=== PATIENT | male | born 1970 | race Caucasian/White ===

== ENCOUNTER 2019-08-26 14:55 | Emergency (ER) | payer MEDICARE ==
[2019-08-26 15:38] LABS: BASO # 0.1 10^3/uL (0.0-0.2); BASO % 0.8 % (0.0-1.0); EOS # 0.1 10^3/uL (0.0-0.5); EOS % 0.8 % (0.0-3.0); HEMOGLOBIN 14.8 g/dl (13.5-17.5); LYMPH % 17.2 % (24.0-44.0); MEAN CORPUSCULAR HEMOGLOBIN 31.4 pg (27.0-33.0); MEAN CORPUSCULAR HGB CONC 34.4 g/dl (32.0-36.5); MEAN CORPUSCULAR VOLUME 91.1 fl (80.0-96.0); MONO # 0.5 10^3/uL (0.0-0.8); MONO % 7.8 % (0.0-5.0); NEUTROPHILS # 4.3 10^3/uL (1.5-8.5); NEUTROPHILS % 72.7 % (36.0-66.0); PLATELET COUNT, AUTOMATED 229 10^3/uL (150-450); RED BLOOD COUNT 4.72 10^6/uL (4.30-6.10); WHITE BLOOD COUNT 5.9 10^3/uL (4.0-10.0)
--- NOTE | 2019-08-26 16:10 | REP ---
CHEST, SINGLE VIEW: Single view of the chest is performed. There is no acute infiltrate. There is poor ventilation. The cardiomediastinal silhouette appears magnified. Left pacemaker is again noted. IMPRESSION: No acute pulmonary disease. Electronically Signed by Evert Brar MD 08/26/2019 05:07 P
--- NOTE | 2019-08-26 17:05 | REP ---
CT BRAIN WITHOUT CONTRAST: CT brain performed without IV contrast. Coronal reconstruction images are performed. Ventricles are normal in size and position. There is no midline shift or mass effect. Brar-white differentiation is well maintained. There is no acute intracranial hemorrhage or extra-axial fluid collection. There is mild mucosal thickening in the inferior maxillary sinuses. IMPRESSION: Mild mucosal thickening inferior maxillary sinuses. Otherwise, negative noncontrast CT brain. Electronically Signed by Evert Brar MD 08/26/2019 05:08 P
--- NOTE | 2019-08-26 21:11 | ECGEPIP ---
[facility] - ED Test Date: 2019-08-26 Pat Name: NATALYA YOUNG Department: Room: - Gender: Male Recovery Analyst: brittany : 1970 Requested By: RENA Nuñez Order Number: [id number] Reading MD: Paolo Adler Measurements Intervals [place] Rate: 81 P: 55 OK: 171 QRS: 10 QRSD: 88 T: 67 QT: 351 QTc: 408 Interpretive Statements SINUS RHYTHM ANTERIOR MYOCARDIAL INFARCTION, OF INDETERMINATE AGE NO PRIORS FOR COMPARISON Electronically Signed on 08-26-2019 21:11:40 EDT by Paolo Adler
--- NOTE | 2019-08-26 21:15 | ECGEPIP ---
[facility] - ED Test Date: 2019-08-26 Pat Name: NATALYA YOUNG Department: Room: - Gender: Male Base Brander: [email or web address] : 1970 Requested By: RENA FOX Order Number: [id number] Reading MD: Paolo Adler Measurements Intervals [place] Rate: 60 P: 57 OR: 151 QRS: 1 QRSD: 84 T: 77 QT: 382 QTc: 382 Interpretive Statements ELECTRONIC ATRIAL PACEMAKER NSTTW ABNORMALITIES RHYTHM CHANGE COMPARED TO PRIOR ON SAME DATE Electronically Signed on 08-26-2019 21:15:21 EDT by Paolo Adler
[2019-08-26 21:31] VITALS: BP 110/65
--- NOTE | 2019-08-27 22:13 | ECGEPIP ---
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 No significant change compared with 08/26/2019 at 1807 hrs. Electronically Signed on 08-27-2019 22:13:36 EDT by Yonatan Hooper
== END 2019-08-26 21:35 | disposition home or self-care (01) ==
LOC: M ED 14:55
DX: F43.0 Acute stress reaction (principal); I25.2 Old myocardial infarction; Z95.0 Presence of cardiac pacemaker; Z95.5 Presence of coronary angioplasty implant and graft

== ENCOUNTER 2023-02-12 01:58 | Emergency (ER) | payer MEDICARE ==
[~2023-02-12] VITALS: Ht 165.1 cm; Wt 68.2 kg
[2023-02-12 02:25] LABS: BASO # 0.1 10^3/uL (0.0-0.2); BASO % 0.7 % (0.0-1.0); EOS # 0.1 10^3/uL (0.0-0.5); EOS % 1.7 % (0.0-3.0); HEMOGLOBIN 15.4 g/dl (13.5-17.5); LYMPH # 1.6 10^3/uL (1.5-5.0); LYMPH % 21.7 % (24.0-44.0); MEAN CORPUSCULAR HEMOGLOBIN 32.1 pg (27.0-33.0); MEAN CORPUSCULAR HGB CONC 34.2 g/dl (32.0-36.5); MEAN CORPUSCULAR VOLUME 93.8 fl (80.0-96.0); MONO # 0.5 10^3/uL (0.0-0.8); MONO % 7.1 % (2.0-8.0); NEUTROPHILS # 5.1 10^3/uL (1.5-8.5); NEUTROPHILS % 67.6 % (36.0-66.0); PLATELET COUNT, AUTOMATED 269 10^3/uL (150-450); WHITE BLOOD COUNT 7.5 10^3/uL (4.0-10.0)
[2023-02-12 02:43] LABS: LIPASE 38 U/L (12-53)
[2023-02-12 02:45] LABS: ALBUMIN 3.2 G/DL (3.2-5.2); ALKALINE PHOSPHATASE 109 U/L (46-116); ALT/SGPT 48 U/L (7.0-40); AST/SGOT 53 U/L (<34); BILIRUBIN,DIRECT < 0.1 MG/DL (<0.4); BILIRUBIN,TOTAL 0.4 MG/DL (0.3-1.2); BLOOD UREA NITROGEN 14 MG/DL (9-23); CALCIUM LEVEL 8.9 MG/DL (8.5-10.1); CARBON DIOXIDE LEVEL 27 MMOL/L (20-31); CHLORIDE LEVEL 103 MMOL/L (98-107); CK-MB VALUE MASS < 1.0 NG/ML (<3.6); CREATININE FOR GFR 1.14 MG/DL (0.70-1.30); GLOMERULAR FILTRATION RATE > 60.0 (>56); GLUCOSE, FASTING 121 MG/DL (60-100); POTASSIUM SERUM 4.5 MMOL/L (3.5-5.1); SODIUM LEVEL 139 MMOL/L (136-145); TOTAL PROTEIN 6.4 G/DL (5.7-8.2)
[2023-02-12 02:49] LABS: CPK CREATINE PHOSPHOKINASE 85 U/L (46-171); MB/CK RELATIVE INDEX 1.17 (< OR =4)
[2023-02-12] MEDS ORDERED: MORPHINE 4 MG/ML 1ML VIAL IV PRN (03:25)
[2023-02-12] MEDS ORDERED: ONDANSETRON 4MG 2ML VIAL IV ONE (03:25)
[2023-02-12] MEDS ORDERED: ISOVUE-370 76% 100ML VIAL As Ordered ONE (03:33)
[2023-02-12 03:49] LABS: CK-MB VALUE MASS < 1.0 NG/ML (<3.6)
[2023-02-12 03:52] LABS: CPK CREATINE PHOSPHOKINASE 78 U/L (46-171); MB/CK RELATIVE INDEX 1.28 (< OR =4)
[2023-02-12 05:40] LABS: CK-MB VALUE MASS 16.1 NG/ML (<3.6)
[2023-02-12 05:53] LABS: MB/CK RELATIVE INDEX 5.49 (< OR =4)
[2023-02-12] MEDS ORDERED: HEPARIN SOD (PORCINE) 5000UNITS/ML 1ML VIAL/SYRINGE IV ONE (06:05)
[2023-02-12] MEDS ORDERED: HEPARIN SOD (PORCINE) 5000UNITS/ML 1ML VIAL/SYRINGE IV PRN (06:05)
[2023-02-12] MEDS ORDERED: HEPARIN DRIP 25,000 UNITS in IV 1 EA IV SCH (07:00)
[2023-02-12 07:09] VITALS: BP 120/66; TEMP 98.5; O2SAT 96
== END 2023-02-12 07:14 | disposition short-term general hospital (02) ==
LOC: M ED 01:58
DX: I21.4 Non-ST elevation (NSTEMI) myocardial infarction (principal); I25.2 Old myocardial infarction; I10 Essential (primary) hypertension
CPT/HCPCS: 71045; 71275; 80047; 80048; 80076; 82550; 82553; 83690; 84484; 85025; 85730; 87486; 87581; 87633; 87798; 93005; 93041; 94760; 96374; 96375; 99285; J2405; Q9967

== ENCOUNTER → 2023-03-12 | Outpatient (CLI) | payer MEDICARE | LOC: M RAD 09:32 | PROVIDERS: ATTEND Thoracic Surgery (Cardiothoracic Vascular Surgery) | DX: J90 Pleural effusion, not elsewhere classified (principal) ==

== ENCOUNTER → 2024-01-16 | Outpatient (CLI) | payer MEDICARE, MEDICAID | LOC: M PLAIMG 08:43 | PROVIDERS: ATTEND Internal Medicine Cardiovascular Disease | DX: I50.22 Chronic systolic (congestive) heart failure (principal); R94.31 Abnormal electrocardiogram [ECG] [EKG]; I22.0 Subsequent ST elevation (STEMI) myocardial infarction of anterior wall; I08.3 Combined rheumatic disorders of mitral, aortic and tricuspid valves ==

== ENCOUNTER 2024-01-28 15:51 | Emergency (ER) | payer MEDICARE, MEDICAID ==
[~2024-01-28] VITALS: Ht 165.1 cm; Wt 70.5 kg
[2024-01-28] MEDS ORDERED: ATOR80TA59 PO (16:11)
[2024-01-28] MEDS ORDERED: ENTR1TAB PO (16:11)
[2024-01-28] MEDS ORDERED: CARV6.25 PO (16:11)
[2024-01-28 17:11] LABS: BASO # 0.1 10^3/uL (0.0-0.2); BASO % 0.9 % (0.0-1.0); EOS # 0.2 10^3/uL (0.0-0.5); EOS % 2.8 % (0.0-3.0); HEMATOCRIT 42.7 % (42.0-52.0); HEMOGLOBIN 14.3 g/dl (13.5-17.5); LYMPH # 0.9 10^3/uL (1.5-5.0); LYMPH % 11.7 % (24.0-44.0); MEAN CORPUSCULAR HEMOGLOBIN 30.9 pg (27.0-33.0); MEAN CORPUSCULAR HGB CONC 33.5 g/dl (32.0-36.5); MEAN CORPUSCULAR VOLUME 92.2 fl (80.0-96.0); MONO # 0.5 10^3/uL (0.0-0.8); MONO % 6.9 % (2.0-8.0); NEUTROPHILS # 5.8 10^3/uL (1.5-8.5); NEUTROPHILS % 77.3 % (36.0-66.0); PLATELET COUNT, AUTOMATED 222 10^3/uL (150-450); RED BLOOD COUNT 4.63 10^6/uL (4.30-6.10); WHITE BLOOD COUNT 7.5 10^3/uL (4.0-10.0)
[2024-01-28 17:19] LABS: INR 1.02; PARTIAL THROMBOPLASTIN TIME 23.1 SECONDS (24.8-34.2); PROTHROMBIN TIME 13.7 SECONDS (12.5-14.5)
[2024-01-28 17:31] LABS: LIPASE 41 U/L (12-53)
[2024-01-28 17:33] LABS: CPK CREATINE PHOSPHOKINASE 136 U/L (46-171)
[2024-01-28 17:38] LABS: ALBUMIN 3.3 G/DL (3.2-5.2); ALKALINE PHOSPHATASE 94 U/L (40-129); ALT/SGPT 29 U/L (7.0-40); AST/SGOT 22 U/L (<34); BILIRUBIN,DIRECT 0.3 MG/DL (<0.4); BILIRUBIN,TOTAL 0.9 MG/DL (0.3-1.2); BLOOD UREA NITROGEN 21 MG/DL (9-23); CALCIUM LEVEL 9.5 MG/DL (8.5-10.1); CARBON DIOXIDE LEVEL 27 MMOL/L (20-31); CHLORIDE LEVEL 109 MMOL/L (98-107); CK-MB VALUE MASS 1.7 NG/ML (<3.6); CREATININE FOR GFR 1.24 MG/DL (0.70-1.30); GLOMERULAR FILTRATION RATE > 60.0 (>56); GLUCOSE, FASTING 80 MG/DL (60-100); MB/CK RELATIVE INDEX 1.25 (< OR =4); POTASSIUM SERUM 4.2 MMOL/L (3.5-5.1); SODIUM LEVEL 141 MMOL/L (136-145); TOTAL PROTEIN 6.3 G/DL (5.7-8.2)
[2024-01-28 17:40] LABS: THYROID STIMULATING HORMONE 0.963 uIU/ML (0.55-4.78)
[2024-01-28 19:02] LABS: CK-MB VALUE MASS 1.8 NG/ML (<3.6)
[2024-01-28 19:05] LABS: MB/CK RELATIVE INDEX 1.23 (< OR =4)
[2024-01-28 22:05] LABS: CK-MB VALUE MASS 1.6 NG/ML (<3.6); MB/CK RELATIVE INDEX 1.12 (< OR =4)
[2024-01-28 22:45] VITALS: BP 102/65; TEMP 98; O2SAT 99
[2024-01-28] MEDS ORDERED: CORE12.5 PO (22:57)
== END 2024-01-28 23:05 | disposition home or self-care (01) ==
LOC: EDBD 15:51 → M ED 15:51
DX: R07.9 Chest pain, unspecified (principal); I25.2 Old myocardial infarction; E78.5 Hyperlipidemia, unspecified; Z86.79 Personal history of other diseases of the circulatory system; Z79.02 Long term (current) use of antithrombotics/antiplatelets; Z79.899 Other long term (current) drug therapy

== ENCOUNTER 2024-04-23 20:11 | Emergency (ER) | payer MEDICARE, MEDICAID ==
[~2024-04-23] VITALS: Ht 170.2 cm; Wt 70.0 kg
[~2024-04-23 20:11] MED LIST: ATOR80TA59 PO; CARV6.25 PO; CORE12.5 PO; ENTR1TAB PO
[2024-04-24] MEDS: BENZONATATE 100MG CAPSULE PO ONE (00:17)
[2024-04-24] MEDS ORDERED: BENZ200C70 PO (01:02)
[2024-04-24 01:29] VITALS: BP 104/61; TEMP 101.2; O2SAT 100
[2024-04-24] MEDS: ACETAMINOPHEN 325 MG TAB PO ONE (01:33)
== END 2024-04-24 01:34 | disposition home or self-care (01) ==
LOC: M ED 20:11
DX: J09.X2 Influenza due to identified novel influenza A virus with other respiratory manifestations (principal); B34.0 Adenovirus infection, unspecified; Z86.79 Personal history of other diseases of the circulatory system; Z79.02 Long term (current) use of antithrombotics/antiplatelets; Z79.899 Other long term (current) drug therapy

== ENCOUNTER → 2024-05-05 | Outpatient (CLI) | payer MEDICARE, MEDICAID ==
[~2024-05-05] MED LIST changes: +BENZ200C70 PO
[2024-05-05 10:13] LABS: BASO % 0.7 % (0.0-1.0); EOS # 0.1 10^3/uL (0.0-0.5); EOS % 2.7 % (0.0-3.0); HEMOGLOBIN 15.2 g/dl (13.5-17.5); LYMPH # 0.9 10^3/uL (1.5-5.0); LYMPH % 19.9 % (24.0-44.0); MEAN CORPUSCULAR HGB CONC 32.3 g/dl (32.0-36.5); MEAN CORPUSCULAR VOLUME 92.9 fl (80.0-96.0); MONO # 0.4 10^3/uL (0.0-0.8); MONO % 8.5 % (2.0-8.0); NEUTROPHILS % 67.3 % (36.0-66.0); PLATELET COUNT, AUTOMATED 355 10^3/uL (150-450); RED BLOOD COUNT 5.06 10^6/uL (4.30-6.10); WHITE BLOOD COUNT 4.5 10^3/uL (4.0-10.0)
[2024-05-05 10:43] LABS: ALBUMIN 3.5 G/DL (3.2-5.2); ALKALINE PHOSPHATASE 90 U/L (40-129); ALT/SGPT 36 U/L (7.0-40); AST/SGOT 25 U/L (<34); BILIRUBIN,TOTAL 0.8 MG/DL (0.3-1.2); BLOOD UREA NITROGEN 22 MG/DL (9-23); CALCIUM LEVEL 9.4 MG/DL (8.5-10.1); CARBON DIOXIDE LEVEL 28 MMOL/L (20-31); CHLORIDE LEVEL 108 MMOL/L (98-107); CHOLESTEROL LEVEL 223 MG/DL (<200); CHOLESTEROL RISK RATIO 5.01 (<5); CREATININE FOR GFR 1.17 MG/DL (0.70-1.30); GLOMERULAR FILTRATION RATE > 60.0 (>56); GLUCOSE, FASTING 95 MG/DL (60-100); HDL CHOLESTEROL 44.5 MG/DL (>40); LDL CHOLESTEROL 159.1 MG/DL (<100); MAGNESIUM LEVEL 2.2 MG/DL (1.8-2.4); NON-HDL-C 178.5 MG/DL; POTASSIUM SERUM 4.8 MMOL/L (3.5-5.1); SODIUM LEVEL 143 MMOL/L (136-145); TOTAL PROTEIN 6.8 G/DL (5.7-8.2); TRIGLYCERIDES LEVEL 97 MG/DL (<150)
== END ==
LOC: M LAB 09:26
PROVIDERS: ATTEND Registered Nurse
DX: I50.22 Chronic systolic (congestive) heart failure (principal); E78.00 Pure hypercholesterolemia, unspecified

== ENCOUNTER → 2024-11-24 | Outpatient (CLI) | payer MEDICARE, MEDICAID | LOC: M CARPUL 08:28 | PROVIDERS: ATTEND Registered Nurse | DX: I50.22 Chronic systolic (congestive) heart failure (principal); I08.3 Combined rheumatic disorders of mitral, aortic and tricuspid valves ==